=== PATIENT | female | born 1980 | race Asian ===

== ENCOUNTER 2020-07-13 17:48 | Emergency (ER) | payer MEDICAID ==
--- NOTE | 2020-07-13 18:34 | EDM.PDOC ---
ED HPI GENERAL MEDICAL PROBLEM - General Chief Complaint: Abdominal Pain Stated Complaint: ABD PAIN Time Seen by Provider: 07/13/20 18:34 Source of Information: Reports: Patient History Limitations: Reports: No Limitations - History of Present Illness INITIAL COMMENTS - FREE TEXT/NARRATIVE: Patient presents to the ER today due to concern about upper abdominal wall pain/tenderness. she states she has been moving stuff at home and work and may have pulled a muscle. she is taking acetaminophen and ibuprofen but not using any ice/heat. she states her work sent her to the ER for further evaluation. she denies any other associated symptoms and pain only occurs with movement. 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, Other Medication(s) (ibuprofen) - Related Data Allergies Allergy/AdvReac Type Severity Reaction Status Date / Time No Known Allergies Allergy Verified 07/13/20 18:12 Home Meds: Home Meds Lisinopril/Hydrochlorothiazide [Lisinopril-Hctz 10-12.5 mg Tab] 1 tab PO DAILY 07/13/20 [History] Sertraline HCl [Zoloft] 150 mg PO DAILY 07/13/20 [History] 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 GI/Abdominal: Reports: Abdominal Pain (left upper abdominal wall with movement--no pain at rest unless she pushes on area) ED EXAM, GI/ABD - Physical Exam Exam: See Below Exam Limited By: No Limitations General Appearance: Alert, WD/WN, No Apparent Distress, Obese Eyes: Bilateral: Normal Appearance Ears: Normal External Exam Nose: Normal Inspection Throat/Mouth: Normal Inspection, Normal Lips, Normal Voice, No Airway Compromise Head: Atraumatic, Normocephalic Neck: Normal Inspection, Supple, Full Range of Motion Respiratory/Chest: No Respiratory Distress, Lungs Clear, Normal Breath Sounds Cardiovascular: Normal Peripheral Pulses, Regular Rate, Rhythm. No: No Edema (bilateral nonpitting edema to LE - mild) GI/Abdominal Exam: Normal Bowel Sounds, Soft, No Distention, Tender (palpatory exam limited by morbid obesity; had noted abdominal wall tenderness in [facility], no abdominal wall hernia /change appreciated with partial sit-up/increase intraabdominal pressure). No: Guarding, Rigid, Rebound (Female) Exam: Deferred Rectal (Female) Exam: Deferred Back Exam: Normal Inspection Extremities: Normal Range of Motion, Normal Capillary Refill, Pedal Edema Neurological: Alert, Oriented, Normal Cognition Psychiatric: Normal Affect, Normal Mood Skin Exam: Warm, Dry, Intact, Normal Color Course - Vital Signs Last Recorded V/S: Last Vital Signs Temp 96.9 F 07/13/20 18:17 Pulse 94 07/13/20 18:17 Resp 16 07/13/20 18:17 BP 157/99 H 07/13/20 18:17 Pulse Ox 99 07/13/20 18:17 Departure - Departure Time of Disposition: 19:10 Disposition: Home, Self-Care 01 Condition: Good Clinical Impression: Strain of abdominal wall, Morbid obesity, Elevated blood pressure reading - Discharge Information *PRESCRIPTION DRUG MONITORING PROGRAM REVIEWED*: Not Applicable *COPY OF PRESCRIPTION DRUG MONITORING REPORT IN PATIENT LESLIE: Not Applicable Instructions: Muscle Strain, [id number], Obesity, Adult, [id number] Referrals: PCP,None [Primary Care Provider] - Forms: ED Department Discharge Additional Instructions: Your blood pressure was noted to be elevated today in the ER--it is recommended that your follow up with your PCM/Family Doctor in the next 1-2 weeks regarding this issue You may use ice or heat as you find helpful, ibuprofen and/or acetaminophen as per over the counter label, topical athletic rubs such as aspircream/biofreeze/bengay/icy hot as per over the counter label If continued concerns follow up with your clinic for repeat examination Sepsis Event Note (ED) - Evaluation Sepsis Screening Result: No Definite Risk - Focused Exam Vital Signs: Vital Signs Temp Pulse Resp BP Pulse Ox 07/13/20 18:17 96.9 F 94 16 157/99 H 99 07/13/20 18:05 96.9 F 94 16 157/99 H 99
== END 2020-07-13 19:20 | disposition home or self-care (01) ==
LOC: JP.ED 17:48
DX: S39.011A Strain of muscle, fascia and tendon of abdomen, initial encounter (principal); E66.01 Morbid (severe) obesity due to excess calories; I10 Essential (primary) hypertension; Z72.0 Tobacco use; Z79.899 Other long term (current) drug therapy; Z68.43 Body mass index [BMI] 50.0-59.9, adult; X50.9XXA Other and unspecified overexertion or strenuous movements or postures, initial encounter
CPT/HCPCS: 99283

== ENCOUNTER 2020-10-04 17:49 | Emergency (ER) | payer MEDICAID ==
[2020-10-04] MEDS ORDERED: predniSONE 20 MG Tab PO ONE (19:09)
--- NOTE | 2020-10-04 19:20 | EDM.PDOC ---
ED HPI GENERAL MEDICAL PROBLEM - General Chief Complaint: Back Pain or Injury Stated Complaint: BULGING DISC, RADIATING PAIN IN PELVIC AREA Time Seen by Provider: 10/04/20 18:50 Source of Information: Reports: Patient, RN History Limitations: Reports: No Limitations - History of Present Illness INITIAL COMMENTS - FREE TEXT/NARRATIVE: Luci is a very pleasant 40 year old female whom recently moved to the area in April. Luci as evaluated in the ER in July for abdominal strain but has had lower pain improved. Luci has been working with a primary care provider in the clinic whom recommended Lyrica, which she takes in the evening after working on her feet for a number of hours which seem to ease the pain and allow her to sleep/rest. Luci was prescribed Celebrex and Tizanidine which she was afraid to start medications. 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 Luci took her Lyrica at work but did not improve the pain today. Luci was diaphoretic and nauseated at work today which prompted ER visit this evening due to pain severity. Luci has worked with maintenance painter which she saw whom recommended localized steroid injection (not schedule for a few weeks). Luci drover herself to the Er this evengin for evaluation. Luci is off work tomorrow as scheduled. Note for work this evening requested. Right Lower Posterior Buttock Pain Score (Numeric/FACES): 10 - Related Data Allergies Allergy/AdvReac Type Severity Reaction Status Date / Time No Known Allergies Allergy Verified 07/13/20 18:12 Home Meds: Home Meds Lisinopril/Hydrochlorothiazide [Lisinopril-Hctz 10-12.5 mg Tab] 1 tab PO DAILY 07/13/20 [History] Sertraline HCl [Zoloft] 150 mg PO DAILY 07/13/20 [History] Acetaminophen/HYDROcodone [Putney 325-5 MG] 1 - 2 tab PO Q6H PRN 2 Days #10 tab 10/04/20 [Rx] Naproxen [Naprosyn] 500 mg PO Q8HR PRN 14 Days #30 tablet 10/04/20 [Rx] Phentermine HCl 37.5 mg PO DAILY 10/04/20 [History] Pregabalin 75 mg PO BID 10/04/20 [History] methocarbamoL [Methocarbamol] 500 mg PO Q8H PRN 10 Days #30 tablet 10/04/20 [Rx] predniSONE [Prednisone] 40 mg PO DAILY 5 Days #10 tablet 10/04/20 [Rx] Past Medical History Cardiovascular History: Reports: 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 GI Surgical History: Reports: Cholecystectomy Female Surgical History: Reports: Section Social & Family History - Tobacco Use Tobacco Use Status *Q: Current Every Day Tobacco User Years of Tobacco use: 20 Packs/Tins Daily: 0.5 Used Tobacco, but Quit: No - Caffeine Use Caffeine Use: Reports: Soda - Alcohol Use Days Per Week of Alcohol Use: 4 Number of Drinks Per Day: 2 Total Drinks Per Week: 8 - Recreational Drug Use Recreational Drug Use: No ED ROS GENERAL - Review of Systems Review Of Systems: Comprehensive ROS is negative, except as noted in HPI. ED EXAM,LOWER BACK PAIN/INJURY - Physical Exam Exam: See Below Exam Limited By: Physical Impairment (due to severity of pain and body habitus) General Appearance: Alert, WD/WN, Severe Distress (sitting gingerly on the edge of her chair due to severe right buttocks pain) Eye Exam: Bilateral Eye: Normal Inspection Ears: Hearing Grossly Normal Nose: Normal Inspection Throat/Mouth: Normal Voice, No Airway Compromise Neck: Normal Inspection, Supple Respiratory/Chest: No Respiratory Distress, Lungs Clear, Normal Breath Sounds Cardiovascular: Normal Peripheral Pulses, Regular Rate, Rhythm GI/Abdominal: Normal Bowel Sounds Back Exam: Decreased Range of Motion, Muscle Spasm, Paraspinal Tenderness, Other (Right SI jonit very painful to soft palpation) Neurological: Alert, Normal Mood/Affect, Normal Dorsiflexion, CN II-XII Intact, Normal Plantar Flexion, Oriented x 3, Abnormal Gait, Difficulty Walking (second miguel to pain) Psychiatric: Normal Affect, Normal Mood Skin Exam: Warm, Dry, Intact, Normal Color Course - Vital Signs Last Recorded V/S: Last Vital Signs Temp 36.3 C 10/04/20 18:47 Pulse 89 10/04/20 18:47 Resp 16 10/04/20 18:47 BP 139/80 10/04/20 18:47 Pulse Ox 97 10/04/20 18:47 - Orders/Labs/Meds Meds: Medications Discontinued Medications Generic Name Dose Route Start Last Admin Trade Name Rickeyq PRN Reason Stop Dose Admin Prednisone 60 mg 10/04/20 19:09 10/04/20 19:17 Prednisone 20 Mg Tab PO 10/04/20 19:10 60 mg ONETIME ONE Administration - Re-Assessments/Exams Free Text/Narrative Re-Assessment/Exam: Discussed pain management options at this time. Luci is comfortable with a short course of steroids at this time. First dose in the ER. Luci is comfortable with an alternative muscle relaxant, as she discarded the Tizanidine from the clinic. Recommended stopping Ibuprofen and trying Naproxen 500mg every 8-12 hours to see if more improved pain control. Recommended caution with Tylenol max dose of 4000mg every 24 hrs. Small prescription for Putney given for severe pain if needed and instructed to use with caution. 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 10/04/20 19:33 Departure - Departure Time of Disposition: 19:20 Disposition: Home, Self-Care 01 Clinical Impression: Low back pain radiating to lower extremity, Bulging lumbar disc - Discharge Information Prescriptions: Acetaminophen/HYDROcodone [Putney 325-5 MG] 1 - 2 tab PO Q6H PRN 2 Days #10 tab PRN Reason: Pain (Severe 7-10) methocarbamoL [Methocarbamol] 500 mg PO Q8H PRN 10 Days #30 tablet PRN Reason: spasms Naproxen [Naprosyn] 500 mg PO Q8HR PRN 14 Days #30 tablet PRN Reason: Inflammation predniSONE [Prednisone] 40 mg PO DAILY 5 Days #10 tablet Instructions: Acute Back Pain, Adult, Degenerative Disk Disease, Chronic Back Pain, Herniated Disk, Herniated Disk Rehab-SportsMed Referrals: Paulina Mejia DO [Primary Care Provider] - Forms: ED Department Discharge Additional Instructions: 1. Continue Lyrica as directed. 2. Prednisone 40mg every am with food for pain and inflammation (cause of worsening symptoms and pain/numbness down right leg). 3. Stop Ibuprofen consider taking Naproxen 500mge very 8 hours for pain and inflammation (not at the same time as prednisone). 4. Tylenol 500-1000mg every 6-8 hours max recommended dose 4000mg/24hrs. 5. Methocarbamol 500-1000mg every 6-8 hrs for muscle spasms and pain may take 2 at night for more severe muscle spasms and pain. 6. Putney (5/325mg Tylenol) 1/2-2 tablet every 6 hr as needed for severe pain. Use with caution, do not drive within 6 hrs of taking this medications. 7. Go to follow-up clinic appointment this week as scheduled. 8. Continue with localized steroid injection as planned later this month. 9. If pain not improving consider orthopedic referral for micro discectomy surgery to remove small portion of disc putting pressure on nerve causing symptoms down your right leg. 10. Return to ER if concerns change new worsening symptoms or new concerns. Sepsis Event Note (ED) - Evaluation Sepsis Screening Result: No Definite Risk - Focused Exam Vital Signs: Vital Signs Temp Pulse Resp BP Pulse Ox 10/04/20 18:47 36.3 C 89 16 139/80 97 10/04/20 18:18 36.3 C 89 16 139/80 97
== END 2020-10-04 19:31 | disposition home or self-care (01) ==
LOC: JP.ED 17:49
DX: M51.26 Other intervertebral disc displacement, lumbar region (principal); I10 Essential (primary) hypertension; Z72.0 Tobacco use; Z79.899 Other long term (current) drug therapy
CPT/HCPCS: 99283; J7512